=== PATIENT | male | born 1940 | race Caucasian/White ===

== ENCOUNTER 2022-11-25 20:13 | Inpatient (IN) | payer OTHER ==
[~2022-11-25] VITALS: Ht 152.4 cm; Wt 81.6 kg
[2022-11-25] MEDS ORDERED: METFORMIN HCL500 M4 PO (20:38)
[2022-11-25] MEDS ORDERED: IRBESARTAN-HCT1 EAC1 PO (20:39)
[2022-12-03] MEDS ORDERED: IRBESARTAN-HCT1 EAC1 PO (12:06)
[2022-12-03] MEDS ORDERED: PANTOPRAZOLE SO40 MG PO (12:07)
[2022-12-03] MEDS ORDERED: LOSARTAN POTAS100 MG PO (12:07)
[2022-12-03] MEDS ORDERED: Invanz IV (12:08)
[2022-12-03] MEDS ORDERED: ZESTRIL10 M1 PO (12:13)
[2022-12-03] MEDS ORDERED: PROTEINEX-18 LI30 ML PO (12:13)
== END 2022-12-03 12:42 | disposition home or self-care (01) | DRG 690 ==
LOC: ER 20:13 → MEDJ 22:28 → MEDI 11-27 13:53
PROVIDERS: ADMIT Internal Medicine; ATTEND Internal Medicine
PROC: BW21ZZZ Computerized Tomography (CT Scan) of Abdomen and Pelvis (ICD-10-PCS; 2022-11-25)
PROC: 02HV33Z Insertion of Infusion Device into Superior Vena Cava, Percutaneous Approach (ICD-10-PCS; principal; 2022-11-30)
DX: N39.0 Urinary tract infection, site not specified (principal); N17.9 Acute kidney failure, unspecified; N45.3 Epididymo-orchitis; I25.10 Atherosclerotic heart disease of native coronary artery without angina pectoris; G47.33 Obstructive sleep apnea (adult) (pediatric); Z95.1 Presence of aortocoronary bypass graft; Z79.4 Long term (current) use of insulin; J44.9 Chronic obstructive pulmonary disease, unspecified; E11.22 Type 2 diabetes mellitus with diabetic chronic kidney disease; N18.9 Chronic kidney disease, unspecified; I13.10 Hypertensive heart and chronic kidney disease without heart failure, with stage 1 through stage 4 chronic kidney disease, or unspecified chronic kidney disease

== ENCOUNTER 2023-03-18 08:15 | Emergency (ER) | payer OTHER ==
[~2023-03-18] VITALS: Ht 167.6 cm; Wt 86.2 kg
[~2023-03-18 08:15] MED LIST: IRBESARTAN-HCT1 EAC1 PO; Invanz IV; LOSARTAN POTAS100 MG PO; METFORMIN HCL500 M4 PO; PANTOPRAZOLE SO40 MG PO; PROTEINEX-18 LI30 ML PO; ZESTRIL10 M1 PO
[2023-03-18] MEDS ORDERED: METFORMIN HCL500 M4 (08:36)
[2023-03-18] MEDS ORDERED: IRBESARTAN-HCT1 EAC1 (08:36)
[2023-03-18] MEDS ORDERED: TAMSULOSIN HCL0.4 MG (08:37)
== END 2023-03-18 09:35 | disposition home or self-care (01) ==
LOC: ER 08:15
DX: T25.012A Burn of unspecified degree of left ankle, initial encounter (principal); X11.8XXA Contact with other hot tap-water, initial encounter; Y93.89 Activity, other specified; Y92.89 Other specified places as the place of occurrence of the external cause